=== PATIENT | male | born 1970 | race Caucasian/White ===

== ENCOUNTER 2024-03-22 09:24 | Emergency (ER) | payer OTHER, SELFPAY ==
[2024-03-22 09:28] VITALS: BP 178/92
--- NOTE | 2024-03-22 09:34 | ED.GENMED ---
History of Present Illness
<Mandi Fajardo PA-C - Last Filed: 03/22/24 15:14>
General
Chief Complaint: Back Pain
Source: patient
Exam Limitations: none
Time Seen by Provider: 03/22/24 09:34
Nursing documentation reviewed up to this point in time: agreed with
History of Present Illness
History of Present Illness:
53-year-old male with past medical history of idiopathic pancreatitis, hypertension, kidney stones, osteoarthritis, presents to the emergency department today with concerns of right upper back pain that radiates to the front of the abdomen for the
past few weeks. Patient states that this started 2 weeks ago he first noticed the pain upon awakening one morning. Patient states that he also felt bloated at this time. Patient states that this feels similar to when he has had a kidney stone but
he states that the bloating feeling feels similar to when he had pancreatitis. Patient states that when the pain first started, he thought that it was musculoskeletal so he took leftover prednisone he had. Patient states that this did initially
resolve his symptoms but then when he stopped the steroids, his symptoms returned. Patient states that he he is having a difficult time finding a position that he is comfortable in, states that the pain is worse with movement or lying supine.
Patient states that he has a family history of biliary disease. Patient denies any nausea or vomiting, constipation or diarrhea, history of abdominal surgery other than stone retrieval. Patient does not follow with a urologist. Patient states
that he has had to have kidney stones removed in the past. Patient denies any pelvic pain, hematuria, dysuria, urinary retention. Patient denies any medication allergies. Patient denies any chest pain or shortness of breath. He denies urinary or
fecal incontinence, denies saddle paresthesias. Denies difficulty ambulating.
Past History
<Mandi Fajardo PA-C - Last Filed: 03/22/24 15:14>
Past History
ED Past Medical History: HTN and Other (Kidney stones, pancreatitis)
ED Past Surgical History: Orthopedic
Social History
Tobacco: Non-smoker
Alcohol: None
Drug: None
Personal:
Living: with family
Employment: Employed
Family History
Family History: CAD
Review of Systems
<Mandi Fajardo PA-C - Last Filed: 03/22/24 15:14>
Review of Systems
All Other Systems: ROS reviewed and negative except as documented in HPI and ROS
Phy Exam
<Mandi Fajardo PA-C - Last Filed: 03/22/24 15:14>
Physical Exam
Physical Exam:
General: Patient is well appearing and in no acute distress; non-toxic
Skin: Warm and dry, no rashes or lesions
Head: Normocephalic, atraumatic
Eyes: Sclera non-icteric. EOMs intact. PERRLA.
Cardiac: Regular rate and rhythm, no murmurs
Peripheral Vascular: No lower extremity swelling or edema
Pulm: Normal respiratory effort
Abdomen: Epigastric abdominal tenderness to palpation noted, no guarding, no rebound tenderness, negative Cuellar sign, no CVA tenderness.
Musculoskeletal: No midline spinal tenderness, pain worse with passive range of motion, negative straight leg raise.
Neuro: CN II-XII intact, no focal neurologic deficits.
Psychiatric: Appropriate mood and affect.
Course
<Mandi Fajardo PA-C - Last Filed: 03/22/24 15:14>
Orders/Labs/Results
Orders:
Orders
03/22/24 09:52
CT Abdomen With Iv Contrast Urgent
Comment:
Reason For Exam: epigastric abdominal pain, right flank pain
Ketorolac [Toradol] 15 mg IV NOW STA
03/22/24 10:08
Complete Blood Count/With Diff Urgent
Comprehensive Metabolic Panel Urgent
Lipase Urgent
Urinalysis Reflex To Culture Urgent
Date Specimen was Collected: 03/22/24
Time Specimen was Collected: 10:04
Abnormal Lab Results
03/22/24
10:08
MPV 10.7 H fL
(7.4-10.4)
Glucose 102 H mg/dl
(70-99)
Lipase 396 H U/L
(23-300)
03/22/24 10:08
03/22/24 10:08
Vital Signs
Initial and Last Documented VS:
Initial Vital Signs
Temp Pulse Resp BP Pulse Ox
98.0 F 80 16 178/92 98
03/22/24 09:28 03/22/24 09:28 03/22/24 09:28 03/22/24 09:28 03/22/24 09:28
Last Documented Vital Signs
Temp Pulse Resp BP Pulse Ox
98.0 F 74 16 140/75 99
03/22/24 09:28 03/22/24 10:02 03/22/24 10:02 03/22/24 10:02 03/22/24 10:02
<Oleg Wilson, - Last Filed: 03/22/24 12:17>
Orders/Labs/Results
Orders:
Orders
03/22/24 09:[address] Abdomen With Iv Contrast Urgent
Comment:
Reason For Exam: epigastric abdominal pain, right flank pain
Ketorolac [Toradol] 15 mg IV NOW STA
03/22/24 10:08
Complete Blood Count/With Diff Urgent
Comprehensive Metabolic Panel Urgent
Lipase Urgent
Urinalysis Reflex To Culture Urgent
Date Specimen was Collected: 03/22/24
Time Specimen was Collected: 10:04
Abnormal Lab Results
03/22/24
10:08
MPV 10.7 H fL
(7.4-10.4)
Glucose 102 H mg/dl
(70-99)
Lipase 396 H U/L
(23-300)
03/22/24 10:08
03/22/24 10:08
Vital Signs
Initial and Last Documented VS:
Initial Vital Signs
Temp Pulse Resp BP Pulse Ox
98.0 F 80 16 178/92 98
03/22/24 09:28 03/22/24 09:28 03/22/24 09:28 03/22/24 09:28 03/22/24 09:28
Last Documented Vital Signs
Temp Pulse Resp BP Pulse Ox
98.0 F 74 16 140/75 99
03/22/24 09:28 03/22/24 10:02 03/22/24 10:02 03/22/24 10:02 03/22/24 10:02
<Mandi Fajardo PA-C - Last Filed: 03/22/24 15:14>
MDM/Problems Addressed
Differential Diagnosis Includes:
Differentials include pancreatitis, nephrolithiasis, herniated disc, spinal stenosis, musculoskeletal sprain/strain, osteo arthritis
MDM/Problems Addressed:
53-year-old male presents to the emergency department today with 2 weeks of mid back pain radiating to the front of the abdomen. Patient states that this feels similar to when he has had a kidney stone or even pancreatitis in the past. Patient
states that he took prednisone when this first started and initially found relief but then his symptoms returned. Patient denies any nausea or vomiting, any fevers or chills, any urinary symptoms. Will treat pain with Toradol, will send off for
blood work and obtain CT scan.
CT of abdomen demonstrated no evidence of hydronephrosis, did show spondylolisthesis as well as degenerative disc disease with significant bilateral foraminal narrowing at L5-S1. No evidence of pancreatitis. Lipase 396. No leukocytosis, no
hematuria. Suspect moderate to severe changes in his spine contributing to his symptoms. Considering patient's symptoms improved with steroids in the past and Toradol improving symptoms today, will restart steroids with an extended taper and have
him follow up with PCP. Also recommended reestablishing care with GI considering his abdominal discomfort and bloating and hx of idiopathic pancreatitis. Patient stable for discharge.
Chronic conditions affecting care:
Hypertension, migraines
<Mandi Fajardo PA-C - Last Filed: 03/22/24 15:14>
*Pulse Oximetry
Patient hypoxic: no
*Critical Care Note
Total Time (30-74mins, 75-104mins- exclusive of procedures): Not Applicable
Data Reviewed
Review of Other/Old Records Reveals: Records (Reviewed discharge summary from 12/30/2007 where patient was seen for acute pancreatitis of unclear etiology)
Prescriptions/Medications Considered But Not Given:
n/a
Further Testing Considered But Not Given:
n/a
<Mandi Fajardo PA-C - Last Filed: 03/22/24 15:14>
Patient Management
Escalation/DeEscalation of care consider admission/obs:
Admit not indicated, patient stable for discharge
ED Attending Note
<Mandi Fajardo PA-C - Last Filed: 03/22/24 15:14>
-
Portions of this chart may have been created with voice recognition software.� Occasional wrong word or��sound alike� substitutions may have occurred due to the inherent limitations of voice recognition software.
<Oleg Wilson DO - Last Filed: 03/22/24 12:17>
ED Attending Note
Patient seen and examined by attending physician: Yes
I performed the substantive portion of visit, reviewed & personally made and approve the management plan that is documented in note by myself or JOSELYN.: Yes
ED Attending Note:
53-year-old male who presents with 3 weeks of right flank pain. He states it does seem a little worse with movement and getting into bed he has to get this or position to be able to fall asleep. He does admit though that he did take a course of
steroids and it seemed to help. He also admits he felt a little bloated and had some discomfort in the epigastric area. When he took steroids that made it seem improved. 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 He
has not had any issues since. He is not regular. Patient currently denies abdominal pain. Admits that he is only being seen now because he did not have insurance and this morning the pain was worse. No vomiting or fevers. No chest pain. No
dysuria. Exam: No CVA tenderness, no back tenderness, abdomen soft and nontender. Awake and alert. No focal obvious deficits. Assessment and plan: Check CT, labs. Question musculoskeletal given the fact that it is worse in certain positions
however he does report some abdominal bloating associated with it. He does have a history of following with GI in the past.
Discharge Plan
Departure
Patient Disposition: Home (Routine Discharge)
Date of Disposition: 03/22/24
Time of Disposition: 12:31
Patient with high blood pressure during this ER visit?: Yes
Condition: Good
Discharge Problem:
Back pain, Bloating
Instructions: Back Pain, BLOOD PRESSURE
Prescriptions:
New
prednisone 10 mg Tablet
See Rx Instructions .ROUTE .COMPLEX Qty: 45 0RF
Rx Instructions:
Take By Mouth:
50 mg daily x3 days, 40 mg daily x3 days,
30 mg daily x3 days, 20 mg daily x3 days,
10 mg daily x3 days
No Action
amlodipine 10 MG tablet
10 mg PO DAILY
azelastine 1 SPRAY aerosol,spray
1 spray intranasal HS
amoxicillin-pot clavulanate 1 TABLET tablet
1 tab PO Q12 Qty: 14 0RF
Referrals:
Bala Sanchez DO [Family Provider] -
Mandi Fajardo PA-C [Emergency Midlevel Provider] -
Roberto Vidal MD [Active] - Call in 1-3 days for appt
Activity Restrictions/Additional Instructions:
Your CT scan demonstrated arthritic changes of the lumbar spine as well as significant narrowing. An extended prednisone taper has been sent to your pharmacy. Please follow package instructions for dosing.
Please schedule an appointment to see [employer] [facility] [employer].
Please follow-up with your primary care.
Please return to the emergency department should you experience any acute worsening of your pain, any urinary incontinence, fecal incontinence, blood in your urine, fevers or chills, inability to ambulate, weakness, chest pain, shortness of breath,
difficulty speaking, severe persistent abdominal pain, or any other signs or symptoms concerning to you.
Interventions
Interventions:
*Risk Screen - Suicide Last Done: 03/22/24 09:28
*General Assessment Last Done: 03/22/24 09:48
*Neglect/Abuse Screening Last Done: 03/22/24 09:28
ED- Fall Risk Assessment Last Done: 03/22/24 09:48
*ED COVID-19 Vaccine History Last Done: 03/22/24 09:48
*Nursing Disposition Last Done: 03/22/24 12:51
ED-Musculoskeletal Assessment Last Done: 03/22/24 09:48
Discharge Date and Time
Discharge Date/Time: 03/22/24 12:51
Print Language: WALLISIAN
[2024-03-22 09:53] VITALS: BMI 32.0
[2024-03-22 10:02] VITALS: BP 140/75
[2024-03-22] MEDS: TORADOL 15 MG IV (10:12)
[2024-03-22 10:22] LABS: % Eosinophils 0.8 % (0-6); % Immature Granulocytes 0.2 % (0-0.5); % Lymphocytes 30.6 % (20.5-51.1); % Monocytes 7.4 % (1.7-9.3); Absolute Basophils 0.1 10^3/uL (0-0.2); Absolute Eosinophils 0.1 10^3/uL (0-0.7); Absolute Lymphocytes 1.9 10^3/uL (1.2-3.4); Absolute Monocytes 0.5 10^3/uL (0.1-0.6); Absolute Neutrophils 3.8 10^3/uL (1.4-6.5); Hematocrit 47.5 % (39.0-52.0); Hemoglobin 16.5 g/dL (13.0-18.0); Mean Corp Hgb Conc. 34.7 g/dL (33.0-37.0); Mean Corpuscular Hgb 28.7 pg (27.0-31.0); Mean Corpuscular Volume 82.6 fL (80.0-94.0); Mean Platelet Volume 10.7 fL (7.4-10.4); Nucleated Red Blood Cells % 0 % (-); Platelet Count 272 10^3/uL (130-400); Red Blood Cell Count 5.75 10^6/uL (4.70-6.10); Red Cell Dist. Width 12.9 % (11.5-14.5); White Blood Cell Count 6.3 10^3/uL (4.8-10.8)
[2024-03-22 10:27] LABS: Urine Albumin Negative (Neg - Trace); Urine Bilirubin Negative (Negative); Urine Character Clear (Clear); Urine Color Yellow; Urine Glucose Negative (Negative); Urine Ketone Negative (Negative); Urine Leukocyte Negative (Negative); Urine Nitrite Negative (Negative); Urine Occult Blood Negative (Negative); Urine Urobilinogen Negative (Neg - 1+)
[2024-03-22 10:33] LABS: ALT (SGPT) 38 U/L (0-50); AST (SGOT) 32 U/L (17-59); Albumin 4.8 g/dl (3.5-5.0); Alkaline Phosphatase 74 U/L (38-126); Blood Urea Nitrogen 16 mg/dl (9-20); Calcium 10.2 mg/dl (8.4-10.2); Carbon Dioxide 28 mmol/L (22-30); Chloride 104 mmol/L (98-107); Estimated Creatinine Clearance 80 ml/min; Glucose 102 mg/dl (70-99); Lipase 396 U/L (23-300); Potassium 4.5 mmol/L (3.5-5.1); Sodium 143 mmol/L (135-145); Total Bilirubin 0.9 mg/dl (0.2-1.3); Total Protein 7.4 g/dl (6.3-8.2); eGFR > 60.00
== END 2024-03-22 12:51 | disposition home or self-care (01) ==
LOC: EMR 09:24
PROVIDERS: Physician Assistant; EMERGENCY PHYSICIAN Emergency Medicine; FAMILY PHYSICIAN Family Medicine
DX: M54.9 Dorsalgia, unspecified (principal); R14.0 Abdominal distension (gaseous); I10 Essential (primary) hypertension
CPT/HCPCS: 99285; 96374; 74160; 80053; 81003; 83690; 85025; Q9967

== ENCOUNTER → 2025-02-22 14:41 | Outpatient (REF) | payer BC, SELFPAY | LOC: HWRCS 14:41 | PROVIDERS: ATTENDING PHYSICIAN Internal Medicine Cardiovascular Disease; FAMILY PHYSICIAN Family Medicine | DX: R06.02 Shortness of breath (principal); I10 Essential (primary) hypertension | CPT/HCPCS: 93306 ==

== ENCOUNTER → 2025-03-01 13:39 | Outpatient (REF) | payer BC, SELFPAY | LOC: RCS 13:39 | PROVIDERS: ATTENDING PHYSICIAN Internal Medicine Cardiovascular Disease; FAMILY PHYSICIAN Family Medicine | DX: R06.02 Shortness of breath (principal) | CPT/HCPCS: 93017; 93350 ==